=== PATIENT | female | born 1990 | race Caucasian/White ===

== ENCOUNTER 2017-07-15 18:19 | Emergency (ER) | payer MEDICAID ==
[~2017-07-15] VITALS: Ht 160 cm; Wt 65.8 kg
[2017-07-15 18:21] VITALS: BP 137/90
--- NOTE | 2017-07-15 18:27 | NUR ---
Patient ambulated to bed 01.
--- NOTE | 2017-07-15 18:28 | NUR ---
Received ALOX4 with pt c/o sore throat over the past 5 wks.
[2017-07-15 18:46] VITALS: BP 135/76
--- NOTE | 2017-07-15 18:47 | NUR ---
Patient discharged with v/s stable. Written and verbal after care instructions given and explained. Patient alert, oriented and verbalized understanding of instructions. Ambulatory with steady gait. All questions addressed prior to discharge. ID band removed. Patient advised to follow up with PMD. Rx of robitussin DM given. Patient educated on indication of medication including possible reaction and side effects. Opportunity to ask questions provided and answered.
== END 2017-07-15 18:47 | disposition home or self-care (01) ==
LOC: MED 18:19
DX: J06.9 Acute upper respiratory infection, unspecified (principal); J02.9 Acute pharyngitis, unspecified
CPT/HCPCS: 99282